=== PATIENT | male | born 1950 | race Caucasian/White ===

== ENCOUNTER 2017-03-18 15:02 | Emergency (ER) | payer SELFPAY ==
[~2017-03-18] VITALS: Ht 172.7 cm; Wt 117.4 kg
[2017-03-18 15:10] VITALS: BP 173/97; PULSE 67; RESP 16; TEMP 98.1; O2SAT 96
[2017-03-18] MEDS ORDERED: RA MED (15:22)
[2017-03-18] MEDS ORDERED: HTN med (15:22)
[2017-03-18] MEDS ORDERED: TETANUS/DIPHTHERIA TOXOID ADULT 0.5 ML VIAL IM ONE (15:30)
--- NOTE | 2017-03-18 15:31 | PD ---
HPI Chief Complaint: Bite or Sting Time Seen by Provider: 15:15 Travel History International Travel<30 days: No Contact w/Intl Traveler<30days: No Traveled to known affect area: No History of Present Illness HPI 66-year-old male presents after an animal bite. Yesterday at 1:30 AM a opossum bit him on the left hand in his chicken coop. He washed the wound out thoroughly. He has slight pain at the site of the puncture wounds. Aggravated by palpation. Denies drainage, numbness, tingling, range of motion limitation. Last tetanus vaccination unknown. PFSH Past Medical History Cardiovascular Problems: Yes (htn on meds) Social History Alcohol Use: No Tobacco Use: No Allergies-Medications (Allergen,Severity, Reaction): Coded Allergies: No Known Allergies (Unverified , 03/18/17) Reported Meds & Prescriptions Reported Meds & Active Scripts Active Augmentin (Amoxicillin-Clavulanate) 875-125 Mg Tab 1 Tab PO BID Reported [RA med] [HTN med] Review of Systems Except as stated in HPI: all other systems reviewed are Neg Physical Exam Narrative GENERAL: Well-nourished male in no acute distress SKIN: Warm and dry. Small puncture wounds noted in the dorsum of the left hand and left thenar eminence. HEAD: Atraumatic. Normocephalic. EYES: Pupils equal and round. No scleral icterus. No injection or drainage. ENT: No nasal bleeding or discharge. Mucous membranes pink and moist. NECK: Trachea midline. No JVD. CARDIOVASCULAR: Regular rate and rhythm. No murmur appreciated. RESPIRATORY: No accessory muscle use. Clear to auscultation. Breath sounds equal bilaterally. MUSCULOSKELETAL: No obvious deformities. Skin as noted above, no palpable foreign bodies, full range of motion, sensation and capillary refill preserved. NEUROLOGICAL: Awake and alert. No obvious cranial nerve deficits. Motor grossly within normal limits. Normal speech. Data Data Last Documented VS Vital Signs Date Time Temp Pulse Resp B/P (MAP) Pulse Ox O2 Delivery O2 Flow Rate FiO2 03/18/17 15:10 98.1 67 16 173/97 (122) 96 Orders Orders Tetanus/Diphtheria Tox Adult (Tetanus/Di (03/18/17 15:30) Hand, Limited (2vws) (03/18/17 ) Ed Discharge Order (03/18/17 16:27) MDM Medical Decision Making Medical Screen Exam Complete: Yes Emergency Medical Condition: Yes Medical Record Reviewed: Yes Differential Diagnosis Puncture wound, animal bite, foreign body Narrative Course Tetanus status updated, x-ray imaging obtained. I discussed the case with the CDC who does not recommend rabies vaccination for opossum bite. Therefore the patient is stable for discharge. He will be given a short course of Augmentin. Diagnosis Primary Impression: Animal bite of left hand Qualified Codes: S61.452A - Open bite of left hand, initial encounter Additional Instructions: Wash the wound daily with soap and water and apply antibiotic cream. Take antibiotic as prescribed. Return for any emergent medical conditions. Med/Other Pt SpecificInfo: Prescription(s) given Scripts Amoxicillin-Clavulanate (Augmentin) 875-125 Mg Tab 1 TAB PO BID for Infection, #10 TAB 0 Refills Prov: Patricia Tabares MD 03/18/17 Disposition: 01 DISCHARGE HOME Condition: Stable Madhu Lew Mar 18, 2017 15:31
--- NOTE | 2017-03-18 15:44 | RADRPT ---
EXAM DATE/TIME: 03/18/2017 15:25 [facility] COMPARISON: No previous studies available for comparison. INDICATIONS : Possum bite on left hand near 4th and 5th metacarpal. MEDICAL HISTORY : None. SURGICAL HISTORY : None. ENCOUNTER: Initial ACUITY: 1 day PAIN SCORE: 3/10 LOCATION: Left hand FINDINGS: Two view examination of the left hand demonstrates soft tissue swelling without fracture. Punctate fo reign body seen along the proximal phalanx of the thumb likely related to old injury. Scattered degen erative changes. The joint spaces are maintained. Bony mineralization is normal. CONCLUSION: Soft tissue swelling without fracture. Omega Solorio MD on March 18, 2017 at 15:42 Board Certified Radiologist. This report was verified electronically.
[2017-03-18] MEDS ORDERED: AUGM875T3 PO (16:27)
== END 2017-03-18 16:47 | disposition home or self-care (01) ==
LOC: PHEFT 15:02
DX: S61.452A Open bite of left hand, initial encounter (principal); W55.81XA Bitten by other mammals, initial encounter; Y92.89 Other specified places as the place of occurrence of the external cause; Z23 Encounter for immunization
CPT/HCPCS: 73120; 90471; 90714